=== PATIENT | female | born 1930 | race Caucasian/White ===

== ENCOUNTER → 2016-11-14 | Outpatient (CLI) | payer MEDICARE, BC ==
[~2016-11-14] MED LIST: CELEXA20 MG PO; COMPAZINE5 MG PO; DILAUDID2 M1 PO; DULCOLAX10 MG PR; DUONEB DPS3 ML IH; LEVAQUIN500 MG PO; MAALOX DPS30 ML PO; MILK OF MAGNESI10 ML PO; NEURONTIN100 MG PO; PROTONIX40 MG PO; SENOKOT S1 TAB PO; SURFAK DPS240 MG PO; SYNTHROID125 MCG PO; TYLENOL DP650 MG/20. PO; TYLENOL DPS325 MG PO; TYLENOL-DPS650 MG PR
== END | disposition home or self-care (01) ==
LOC: RAD.S 13:30
DX: M25.511 Pain in right shoulder (principal); S42.001A Fracture of unspecified part of right clavicle, initial encounter for closed fracture; X58.XXXA Exposure to other specified factors, initial encounter